=== PATIENT | female | born 1960 | race Caucasian/White ===

== ENCOUNTER 2017-02-04 13:32 | Day surgery (SDC) | payer BC, OTHER ==
[~2017-02-04 13:32] MED LIST: RINGERS SOLUTION,LACTATED 1,000 ML IV PRN
--- OUTSIDE RECORDS SUMMARY | 2017-02-04 13:36 | XMS REPORT | Continuity of Care Document ---
:1960 Author Organization [facility] ([facility]) Address [address] [place] [address] Phone [phone] Care Team Providers Name Role Phone Fawad Ferrari Primary Care Provider [phone] Source Comments This disclosure is being made pursuant to the Care Everywhere program, applicable federal and state laws, and may not contain all informaitonavailable regarding this patient.[facility] ([facility]) Active Allergies and Adverse Reactions Allergen Noted Date Severity Reactions Comments Amoxicillin-Pot Clavulanate 06/28/2015 Angioedema Fentanyl Urticaria (Hives) Hydromorphone Pruritus Methadone Urticaria (Hives) Morphine Urticaria (Hives) Oxycodone Urticaria (Hives) Current Medications Prescription Sig. Disp. Refills Start Date End Date Status fexofenadine (TREE) take 180 mg by mouth Active 180 mg tablet daily. allergies cholecalciferol Take 2,000 Units by Active (VITAMIN D3) 2,000 mouth daily. unit tablet aspirin 81 mg EC Take 81 mg by mouth Active tablet daily. cyanocobalamin Take 2,000 mcg by Active (VITAMIN B-12) 2,000 mouth daily. mcg XR tablet multivitamin tablet Take 1 Tab by mouth Active daily. metFORMIN (GLUMETZA) Take 1,000 mg by Active 1,000 mg XR tablet mouth daily. omeprazole 20 mg Take 20 mg by mouth Active extended release at bedtime. capsule oxybutynin 10 mg CR Take 1 Tab by mouth 30 Tab 11 10/02/2014 Active tablet daily. Indications: URINARY URGE INCONTINENCE furosemide 40 mg Take 40 mg by mouth 2 Active tablet times daily pramipexole 0.5 mg Take 0.5 mg by mouth Active tablet at bedtime Pt. Takes 6 talbets at bedtime insulin lispro Inject 18 Units Active (HumaLOG KWIKPEN) 100 subcutaneously 3 unit/mL (3 mL) times daily with injection pen meals clonazePAM 0.25 mg Take 0.5 mg by mouth Active disintegrating tablet at bedtime insulin glargine Inject 46 Units Active (LanTUS SOLOSTAR) 100 subcutaneously at unit/mL (3 mL) bedtime. injection pen losartan 50 mg tablet Take 50 mg by mouth Active daily docusate 100 mg Take 200 mg by mouth Active capsule 2 times daily as needed NOVOLOG FLEXPEN 100 Inject 20 Units 4 11/13/2015 Active unit/mL (3 mL) subcutaneously 3 injection pen times daily before meals. Active Problems Problem Noted Date Female stress incontinence 11/29/2015 Obstructive sleep apnea (adult) (pediatric) 11/29/2015 Essential (primary) hypertension 11/29/2015 Type 2 diabetes mellitus without complications 11/29/2015 Gastroesophageal reflux disease without esophagitis 11/29/2015 Mixed hyperlipidemia [E78.2] 11/29/2015 Rectocele 10/02/2014 Urgency incontinence 10/02/2014 Overview: S/p cadaveric fascia sling 2002 PVR 10/02/2014=16 cc Morbid obesity with BMI of 45.0-49.9, adult 12/12/2013 Myofascial pain syndrome, cervical 12/12/2013 Neck pain 12/06/2013 Pain of left scapula 12/06/2013 Fever 05/22/2011 Dysmetabolic syndrome X 05/31/2008 Herpetic gingivostomatitis 10/21/2007 Unspecified condition of the tongue 09/16/2007 Arthrodesis status 07/26/2007 Displacement of lumbar intervertebral disc without myelopathy 06/14/2007 Chest pain, unspecified 05/30/2007 Pain in joint, ankle and foot 02/03/2007 Pain in joint, shoulder region 11/25/2004 Disorders of bursae and tendons in shoulder region, unspecified 03/15/2003 Adhesive capsulitis of shoulder 02/08/2003 Resolved Problems Problem Noted Date Resolved Date Postlaminectomy syndrome, lumbar region 06/14/2007 12/12/2013 Spinal stenosis, unspecified region other than cervical 09/17/2005 12/12/2013 Immunizations Name Dates Previously Given Next Due Hepatitis B, unspecified 09/06/2007 Influenza, unspecified 08/22/2007 Pneumococcal, unspecified 09/08/2003 Social History Tobacco Use Types Packs/Day Years Used Date Never Smoker Smokeless Tobacco: Never Used Tobacco Cessation:Counseling Given: Yes Comments: Alcohol Use Drinks/Week oz/Week Comments No Last Filed Vital Signs Vital Sign Reading Time Taken Blood Pressure 130/67 11/29/2015 1:46 PM COSMETIC COUNSELOR Pulse 74 11/29/2015 1:46 PM COSMETIC COUNSELOR Temperature 36.6 C (97.9 F) 11/29/2015 1:46 PM COSMETIC COUNSELOR Respiratory Rate 20 10/03/2012 11:29 AM COSMETIC COUNSELOR Height 1.635 m (5' 4.37") 11/29/2015 1:49 PM COSMETIC COUNSELOR Weight 120.15 kg (264 lb 14.1 oz) 11/29/2015 1:49 PM COSMETIC COUNSELOR Body Mass Index 44.95 11/29/2015 1:49 PM COSMETIC COUNSELOR Oxygen Saturation 99% 10/03/2012 11:29 AM COSMETIC COUNSELOR Plan of Care Health Maintenance Due Date Last Done Comments HCV Screening 1960 Tdap Vaccine 1971 DIABETIC: Cholesterol 1978 Diabetic: Hdl 1978 Diabetic: Ldl 1978 DIABETIC: Microalbumin 1978 DIABETIC: Triglycerides 1978 MMR Vaccine 1978 Td Vaccine 1978 Pneumococcal Vaccine (1 of 1 - PPSV23) 1979 Mammogram 2000 Cervical Cancer Screening 08/02/2004 08/02/2001 Hepatitis B Vaccine (2 of 3 - Primary 10/04/2007 09/06/2007 Series) DIABETIC: Hemoglobin A1C 04/23/2014 10/23/2013, 06/10/2007 DIABETIC: Foot Exam 11/29/2015 DIABETIC: Retinal Eye Exam 11/29/2015 Colonoscopy 02/26/2016 02/25/2006, 02/18/2006 Influenza Vaccine: Seasonal (#1) 06/08/2016 08/22/2007 Results from Last 3 Months Not on file
[2017-02-04] MEDS ORDERED: RINGERS SOLUTION,LACTATED 1,000 ML IV ONE (15:10)
[2017-02-04] MEDS ORDERED: BUPIVACAINE HCL/EPINEPHRINE 50 ML VIAL IJ ONE (15:44)
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
[2017-02-04] MEDS ORDERED: IBUPROFEN 800 MG TABLET PO PRN (16:45)
[2017-02-04 20:40] VITALS: BP 137/62
== END 2017-02-04 13:33 | disposition home or self-care (01) ==
LOC: AMB 13:32
PROVIDERS: ATTEND Obstetrics & Gynecology Gynecologic Oncology
PROC: 0UDB8ZX Extraction of Endometrium, Via Natural or Artificial Opening Endoscopic, Diagnostic (ICD-10-PCS; principal; 2017-02-04 15:30)
DX: N95.0 Postmenopausal bleeding (principal); I10 Essential (primary) hypertension; E11.9 Type 2 diabetes mellitus without complications; E78.5 Hyperlipidemia, unspecified; G47.33 Obstructive sleep apnea (adult) (pediatric); E66.01 Morbid (severe) obesity due to excess calories; R60.0 Localized edema; Z68.42 Body mass index [BMI] 45.0-49.9, adult

== ENCOUNTER 2017-02-24 11:04 | Observation (INO) | payer BC, OTHER ==
--- OUTSIDE RECORDS SUMMARY | 2017-02-24 11:10 | XMS REPORT | Continuity of Care Document ---
:1960 Author Organization [facility] ([facility]) Address [address] [place] [address] Phone [phone] Care Team Providers Name Role Phone Fawad Ferrari Primary Care Provider [phone] Source Comments This disclosure is being made pursuant to the Care Everywhere program, applicable federal and state laws, and may not contain all informaitonavailable regarding this patient.[facility] ([facility]) Active Allergies and Adverse Reactions Allergen Noted [...] Taken Blood Pressure 130/67 11/29/2015 1:46 PM PHOTOVOLTAIC PANEL INSTALLER Pulse 74 11/29/2015 1:46 PM PHOTOVOLTAIC PANEL INSTALLER Temperature 36.6 C (97.9 F) 11/29/2015 1:46 PM PHOTOVOLTAIC PANEL INSTALLER Respiratory Rate 20 10/03/2012 11:29 AM PHOTOVOLTAIC PANEL INSTALLER Height 1.635 m (5' 4.37") 11/29/2015 1:49 PM PHOTOVOLTAIC PANEL INSTALLER Weight 120.15 kg (264 lb 14.1 oz) 11/29/2015 1:49 PM PHOTOVOLTAIC PANEL INSTALLER Body Mass Index 44.95 11/29/2015 1:49 PM PHOTOVOLTAIC PANEL INSTALLER Oxygen Saturation 99% 10/03/2012 11:29 AM PHOTOVOLTAIC PANEL INSTALLER Plan of Care Health Maintenance Due Date [...] Colonoscopy 02/26/2016 02/25/2006, 02/18/2006 Influenza Vaccine: Seasonal (Season Ended) 2017 08/22/2007 Results from Last 3 Months Not on file
[2017-02-24] MEDS ORDERED: ONDANSETRON HCL/PF 2 MG/ML VIAL IV PRN (11:12)
[2017-02-24 11:31] LABS: Amylase * 67 U/L (25-115); Lipase 440 U/L (73-393)
[2017-02-24] MEDS: POTASSIUM CHLORIDE 20 MEQ TABLET.SA PO SCH (12:26)
[2017-02-24] MEDS: POTASSIUM CHLORIDE 40 MEQ in NORMAL SALINE 1,000 ML IV SCH ×2 (12:26→22:44)
[2017-02-24] MEDS: INSULIN ASPART 100 UNITS/ML VIAL SC SCH (17:32)
[2017-02-24] MEDS ORDERED: INSULIN GLARGINE,HUM.REC.ANLOG 100 UNITS/ML VIAL SC SCH (21:00)
[2017-02-24] MEDS ORDERED: PRAMIPEXOLE DI-HCL 0.5 MG TABLET PO SCH (21:00)
[2017-02-24] MEDS ORDERED: ROSUVASTATIN CALCIUM 10 MG TABLET PO SCH (21:00)
[2017-02-24] MEDS ORDERED: PANTOPRAZOLE SODIUM 20 MG TABLET.DR PO SCH (21:00)
[2017-02-24] MEDS: ACETAMINOPHEN 500 MG TABLET PO PRN (22:44)
[2017-02-25] MEDS: ACETAMINOPHEN 500 MG TABLET PO PRN (05:21)
[2017-02-25 06:20] LABS: Albumin * 3.2 gm/dl (3.4-5.0); BUN/Creatinine Ratio 31.1 (9.0-21.6); Bilirubin, Total 0.9 mg/dL (0.0-1.1); Ca. Corrected For Albumin 9.4 mg/dL (8.4-10.2); Calcium * 9.1 mg/dL (7.9-10.9); Total Protein 6.7 gm/dL (6.2-8.2)
[2017-02-25] MEDS: INSULIN ASPART 100 UNITS/ML VIAL SC SCH ×2 (07:04→11:07)
[2017-02-25] MEDS ORDERED: PANTOPRAZOLE SODIUM 40 MG TABLET.EC PO STA (08:22)
[2017-02-25] MEDS ORDERED: ONDANSETRON HCL 4 MG TABLET PO PRN (08:44)
[2017-02-25] MEDS: POTASSIUM CHLORIDE 40 MEQ in NORMAL SALINE 1,000 ML IV SCH (08:57)
[2017-02-25] MEDS ORDERED: LORATADINE 10 MG TABLET PO SCH (09:00)
[2017-02-25] MEDS ORDERED: LOSARTAN POTASSIUM 50 MG TABLET PO SCH (09:00)
[2017-02-25] MEDS ORDERED: SPIRONOLACTONE 25 MG TABLET PO SCH (09:00)
[2017-02-25] MEDS: POTASSIUM CHLORIDE 20 MEQ TABLET.SA PO SCH (09:32)
[2017-02-25 11:12] VITALS: BP 122/60
--- NOTE | 2017-02-25 13:02 | DS ---
(1) Uncontrolled diabetes mellitus type 2 without complications Problem: Acute (2) Renal failure Diagnosis(s): Due to dehydration Problem: Acute Description of Stay: 56-year-old white female with uncontrolled diabetic is and leg swelling I increase her dose of diuretic by adding metolazone 5 mg she diuresed some and then started to have nausea weakness and vomiting her BUN and creatinine went up. She was admitted to short stay started on IV saline with potassium with this still BUN/creatinine went down to almost baseline and there were no further vomiting so she will be discharged. She was also complaining of left upper quadrant pain abdominal CT did not show any significant finding her lasix and jardiance will be hold for now Procedures Performed: none Discharge Disposition: Home self care Disposition: Home self-care Condition: Fair Discharge Activity: Activity as tolerated Discharge Diet: Consistent carbs Referrals: Madi Breen MD [Primary Care Provider] - Additional Patient Instructions (free text): Follow up with Dr. Breen in 1 week Repeat CMP Prescriptions (Any new or edited meds): Ondansetron HCl [Zofran] 4 mg PO Q4H PRN #20 tablet PRN Reason: Nausea And Vomiting Spironolactone [Aldactone] 25 mg PO DAILY #30 tablet Complete Home Medications List: Complete Home Medication List: Atorvastatin Calcium [Lipitor] 20 mg PO HS 04/09/14 Insulin Glargine,Hum.rec.anlog [Lantus Solostar] 72 unit SQ HS 04/09/14 Aspirin [Aspirin EC] 81 mg PO DAILY 10/27/16 Fexofenadine HCl [Bita Allergy] 180 mg PO DAILY 10/27/16 Acetaminophen [Tylenol] 500 mg PO Q6H PRN 02/03/17 Insulin Aspart [Novolog Flexpen] 36 unit SQ AC 02/03/17 Losartan Potassium [Cozaar] 100 mg PO DAILY 02/03/17 Menthol [Biofreeze] 1 appl TP Q4H PRN 02/03/17 Multivit with Calcium,Iron,Min [Women's Daily Formula] 1 each PO DAILY 02/03/17 Omeprazole [Prilosec] 20 mg PO HS 02/03/17 Potassium Chloride [Klor-Con 10] 40 meq PO DAILY 02/03/17 Pramipexole Di-HCl [Mirapex] 3 mg PO HS 02/03/17 metFORMIN HCL [Glucophage] 1,000 mg PO BIDWM 02/03/17 Loratadine [Claritin] 10 mg PO DAILY tablet 02/25/17 Ondansetron HCl [Zofran] 4 mg PO Q4H PRN #20 tablet 02/25/17 Spironolactone [Aldactone] 25 mg PO DAILY #30 tablet 02/25/17
== END 2017-02-25 14:25 | disposition home or self-care (01) ==
LOC: MS 11:04
PROVIDERS: ADMIT Internal Medicine; ATTEND Internal Medicine
DX: N17.9 Acute kidney failure, unspecified (principal); E86.0 Dehydration; R11.2 Nausea with vomiting, unspecified; I95.9 Hypotension, unspecified; E11.65 Type 2 diabetes mellitus with hyperglycemia; E78.5 Hyperlipidemia, unspecified; Z79.4 Long term (current) use of insulin
CPT/HCPCS: 36415; 71020; 74176; 80053; 82150; 83690; 85652; 86140; 96361; 96372; 96374; G0378; G0379

== ENCOUNTER 2017-04-05 05:26 | Emergency (ER) | payer BC, OTHER ==
--- OUTSIDE RECORDS SUMMARY | 2017-04-05 06:15 | XMS REPORT | Continuity of Care Document ---
:1960 Author Organization [facility] ([facility]) Address [address] [place] [address] Phone [phone] Care Team Providers Name Role Phone Fawad Ferrari Primary Care Provider [phone] Source Comments This disclosure is being made pursuant to the Care Everywhere program, applicable federal and state laws, and may not contain all informaitonavailable regarding this patient.[facility] ([facility]) Active Allergies and Adverse Reactions Allergen Noted [...] Taken Blood Pressure 130/67 11/29/2015 1:46 PM VESSEL ENGINEER Pulse 74 11/29/2015 1:46 PM VESSEL ENGINEER Temperature 36.6 C (97.9 F) 11/29/2015 1:46 PM VESSEL ENGINEER Respiratory Rate 20 10/03/2012 11:29 AM VESSEL ENGINEER Height 1.635 m (5' 4.37") 11/29/2015 1:49 PM VESSEL ENGINEER Weight 120.15 kg (264 lb 14.1 oz) 11/29/2015 1:49 PM VESSEL ENGINEER Body Mass Index 44.95 11/29/2015 1:49 PM VESSEL ENGINEER Oxygen Saturation 99% 10/03/2012 11:29 AM VESSEL ENGINEER Plan of Care Health Maintenance Due Date [...]
[2017-04-05 06:20] LABS: Hematocrit 44.4 % (37.0-47.0); Hemoglobin 15.2 gm/dL (12.5-16.0); Mean Cell Volume 88.3 fl (78-100); Mean Corpuscular Hemoglobin 30.2 pg (27-31); Mean Corpuscular Hgb Conc 34.2 g/dl (32-36); Mean Platelet Volume 9.3 fl (6.0-9.5); Neutrophil # 2.7 K/mm3 (1.3-6.0); Neutrophil % 47.5 % (42-75.0); Platelet Count 238 K/mm3 (150-450); Red Blood Count 5.03 M/mm3 (4.2-5.4); White Blood Count 5.6 K/mm3 (4.0-10.5)
[2017-04-05] MEDS ORDERED: traMADol HCL 50 MG TABLET PO ONE (06:22)
[2017-04-05] MEDS ORDERED: traMADol HCL 50 MG TABLET ONE (06:24)
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
[2017-04-05 06:34] LABS: Albumin * 3.6 gm/dl (3.4-5.0); Anion Gap 13.4 mmol/L (6.8-13.8); BUN/Creatinine Ratio 12.9 (9.0-21.6); Bilirubin, Total 0.6 mg/dL (0.0-1.1); Ca. Corrected For Albumin 9.7 mg/dL (8.4-10.2); Calcium * 9.7 mg/dL (7.9-10.9); Carbon Dioxide 30.5 mmol/L (24-32.6); Potassium 3.9 mmol/L (3.4-4.6); Total Protein 7.8 gm/dL (6.2-8.2)
[2017-04-05 06:37] LABS: Urine Bilirubin Negative (NEGATIVE); Urine Blood Negative /ul (NEGATIVE); Urine Ketone Negative (NEGATIVE); Urine Nitrite Negative (NEGATIVE); Urine Protein Negative (NEGATIVE); Urine Urobilinogen Normal (NORMAL)
[2017-04-05 07:00] LABS: Urine Appearance Slightly Cloudy; Urine Color Yellow
[2017-04-05 07:01] LABS: Urine Bacteria None Seen; Urine RBC None Seen /hpf (0-5); Urine WBC 0-5 /hpf (0-5)
[2017-04-05 07:09] VITALS: BP 133/84
== END 2017-04-05 07:15 | disposition home or self-care (01) ==
LOC: ER 05:26
DX: M54.9 Dorsalgia, unspecified (principal); E11.9 Type 2 diabetes mellitus without complications; Z79.4 Long term (current) use of insulin; E78.5 Hyperlipidemia, unspecified; I10 Essential (primary) hypertension; K21.9 Gastro-esophageal reflux disease without esophagitis

== ENCOUNTER 2017-05-21 12:51 | Day surgery (SDC) | payer BC, OTHER ==
[~2017-05-21 12:51] MED LIST changes: +ceFAZolin SODIUM 1 GM VIAL IV PRN
[2017-05-21] MEDS ORDERED: BUPIVACAINE HCL 50 ML VIAL IJ ONE (14:05)
[2017-05-21 15:42] VITALS: BP 100/71
== END 2017-05-21 12:52 | disposition home or self-care (01) ==
LOC: AMB 12:51
PROVIDERS: ATTEND Orthopaedic Surgery
PROC: 0LN80ZZ Release Left Hand Tendon, Open Approach (ICD-10-PCS; principal; 2017-05-21 16:45)
DX: M65.312 Trigger thumb, left thumb (principal); E11.22 Type 2 diabetes mellitus with diabetic chronic kidney disease; I12.9 Hypertensive chronic kidney disease with stage 1 through stage 4 chronic kidney disease, or unspecified chronic kidney disease; N18.2 Chronic kidney disease, stage 2 (mild); E78.5 Hyperlipidemia, unspecified; E66.01 Morbid (severe) obesity due to excess calories; Z68.42 Body mass index [BMI] 45.0-49.9, adult

== ENCOUNTER 2017-12-02 06:50 | Day surgery (SDC) | payer BC, OTHER ==
[~2017-12-02 06:50] MED LIST changes: +DEXTROSE 5%-NORMAL SALINE 1,000 ML IV PRN; -RINGERS SOLUTION,LACTATED 1,000 ML IV PRN; -ceFAZolin SODIUM 1 GM VIAL IV PRN
[2017-12-02] MEDS ORDERED: RINGER'S SOLUTION,LACTATED 1,000 ML IV ONE (08:00)
[2017-12-02] MEDS ORDERED: BUPIVACAINE HCL/EPINEPHRINE 50 ML VIAL IJ ONE (08:15)
[2017-12-02] MEDS ORDERED: IBUPROFEN 800 MG TABLET PO PRN (09:12)
[2017-12-02] MEDS ORDERED: oxyCODONE HCL/ACETAMINOPHEN 1 TAB TABLET PO PRN (09:12)
--- NOTE | 2017-12-02 10:08 | OR ---
Operative Report - Dictated Report Narrative: Operative report: 12/02/2017 Preoperative diagnosis: Postmenopausal bleeding and abnormal uterine lining Postoperative diagnosis: Same Procedure: Hysteroscopy, D&C Surgeon: Anika Valdez D.O. Manager Commercial Sales: OR staff Anesthesia: Local and general IV fluids: 600 Milliliters EBL: Minimal Milliliters Urine output: Not applicable Findings: Uterine lining with attached blood clots with an abnormal appearance at the fundus of the uterus with multiple punctation or hemorrhagic spots otherwise slightly atrophic lining Drains: None Pathology: Endometrial curettings Complications: None Condition: Stable The patient was taken to the operating room. Anesthesia was found to be adequate. The patient was prepped and draped in the normal sterile fashion in the dorsal lithotomy position. A sterile speculum was then inserted into the vagina. The anterior lip of the cervix was then grasped with a single-tooth tenaculum. Local anesthetic was then injected in the cervix. The hysteroscope was then inserted into the cervix. Hydrodistention was then used to enter into the uterine cavity. The cavity was then surveyed and noted as above. The hysteroscope was then removed. The cervix was then sequentially dilated. A sharp curettage was then performed until the cry of the uterus was noted. Minimal bleeding was then noted from the cervix. Hysteroscopy was then performed and adequate curettage was noted throughout the entire cavity. The hysteroscope was then removed. The tenaculum was then removed. Hemostasis was noted. The speculum was then removed. All sponge lap and needle counts were correct 2. The patient was taken to the recovery room in stable condition.
[2017-12-02 11:41] VITALS: BP 114/65
== END 2017-12-02 06:51 | disposition home or self-care (01) ==
LOC: AMB 06:50
PROVIDERS: ATTEND Obstetrics & Gynecology Gynecologic Oncology
PROC: 0UDB8ZX Extraction of Endometrium, Via Natural or Artificial Opening Endoscopic, Diagnostic (ICD-10-PCS; principal; 2017-12-02)
DX: D26.1 Other benign neoplasm of corpus uteri (principal); E11.65 Type 2 diabetes mellitus with hyperglycemia; G47.33 Obstructive sleep apnea (adult) (pediatric); E66.9 Obesity, unspecified; Z68.42 Body mass index [BMI] 45.0-49.9, adult; I10 Essential (primary) hypertension; E78.5 Hyperlipidemia, unspecified